=== PATIENT | male | born 1975 | race Caucasian/White ===

== ENCOUNTER 2017-10-01 02:51 | Emergency (ER) | payer SELFPAY ==
[2017-10-01] MEDS ORDERED: FENTAnyl 50 MCG/ML VIAL (21:34)
== END 2017-10-01 03:58 | disposition left against medical advice (07) ==
LOC: E/R 02:51
DX: Z53.21 Procedure and treatment not carried out due to patient leaving prior to being seen by health care provider (principal)
CPT/HCPCS: 93005